=== PATIENT | male | born 1950 | race Caucasian/White ===

== ENCOUNTER 2022-02-18 10:27 | Outpatient (CLI) | payer MEDICARE, SELFPAY ==
--- NOTE | 2022-02-18 10:36 | ECG_ITS ---
Measurements Intervals [place] Rate: 56 P: 31 MN: 123 QRS: 57 QRSD: 96 T: 18 QT: 392 QTc: 381 Interpretive Statements SINUS BRADYCARDIA NONSPECIFIC T-WAVE ABNORMALITY ABNORMAL ECG NO PREVIOUS ECG AVAILABLE FOR COMPARISON Electronically Signed On 02-18-2022 16:00:25 CDT by Maury Rodríguez M.D.
[2022-02-18 11:06] LABS: Basophils Percent Auto 0.7 % (0.2-1.2); Eosinophils Absolute Auto 0.2 K/mm3 (0-0.3); Eosinophils Percent Auto 3.8 % (0-4.4); Hematocrit 42.9 % (42.0-52.0); Hemoglobin 14.5 g/dL (14.0-18.0); Immature Granulocyte Absolute 0.01 K/mm3 (0.00-0.031); Immature Granulocyte Percent A 0.2 % (0-0.5); Lymphocytes Absolute Auto 0.83 K/mm3 (0.9-3.2); Lymphocytes Percent Auto 19.9 % (18.3-44.2); Mean Corpuscular HGB Conc 33.8 g/dl (32-36); Mean Corpuscular Hemoglobin 30.4 pg (26-34); Mean Corpuscular Volume 89.9 fl (80-100); Mean Platelet Volume 9.7 fl (7.4-10.4); Monocytes Absolute Auto 0.6 K/mm3 (0.1-0.6); Monocytes Percent Auto 13.4 % (2.6-8.5); Neutrophils Absolute Auto 2.6 K/mm3 (1.3-6.7); Platelet Count Result 175 k/mm3 (150-375); Red Blood Count 4.77 M/mm3 (4.6-6.20); Red Cell Distribution Width 14.6 % (11.5-14.5); White Blood Count 4.2 K/mm3 (4.5-10.0)
[2022-02-18 11:17] LABS: Prothrombin Time 12.6 Seconds (11.1-14.7)
[2022-02-18 11:18] LABS: Partial Thromboplastin Time 32.7 SECONDS (22.3-36.8)
[2022-02-18 11:21] LABS: Anion Gap 4 mmol/L (8-16); Blood Urea Nitrogen 24 mg/dL (9-20); Calcium 9.3 mg/dL (8.4-10.2); Carbon Dioxide 31 mmol/L (22-30); Chloride 106 mmol/L (98-107); Estimated Glomerular Filt Rate 60; Glucose 73 mg/dL (65-110); Sodium 141 mmol/L (137-145)
== END 2022-02-18 10:28 | disposition home or self-care (01) ==
PROVIDERS: PCP Family Medicine Sports Medicine; Visit Provider Urology
DX: Z01.818 Encounter for other preprocedural examination (principal); R97.20 Elevated prostate specific antigen [PSA]; E78.00 Pure hypercholesterolemia, unspecified; R00.1 Bradycardia, unspecified; Z51.81 Encounter for therapeutic drug level monitoring; Z79.899 Other long term (current) drug therapy
CPT/HCPCS: 36415; 80048; 85025; 85610; 85730; 87086; 93005

== ENCOUNTER 2022-02-23 00:19 | Day surgery (SDC) | payer MEDICARE, SELFPAY ==
[2022-02-17 13:37] VITALS: BMI 25.8
--- NOTE | 2022-02-17 13:45 | PC.NURSE ---
Report to the Outpatient Waiting Room, entrance under the green pavilion located off [facility], at time 0600 on date _02/23/22 . OR Time: . - You and your visitor will be asked a series of questions to screen for COVID 19 for your protection. - A mask is required within the hospital. Preoperative COVID Testing Requirements: No COVID Test needed if: (proof is required; if not received patient will have Rapid Test prior to entry) - Patient has received COVID Vaccine at least 14 days prior to procedure date or - Patient has positive COVID test result within last 90 days of surgery date. COVID Test needed if above criteria is not met If not COVID vaccinated a COVID test must be conducted within 72 hours of surgery and patient is asked to isolate self from time of testing until procedure. You will go to the [facility] for your COVID testing. The [facility] is located at the corner of [address] [facility]. You will only be called if COVID results are positive and your surgeon may reschedule your elective surgery date. Patients may have clear liquids (water, carbonated beverages, clear teas, apple juice) until 3 hours prior to surgery with a maximum of 20 ounces. - No food from midnight until time of surgery - Infants may have breast milk until 4 hours before surgery, infant formula 6 hours prior to surgery. - Children will be allowed to drink immediately following surgery. If applicable, please bring a bottle or sippy cup to assist with drinking. Juice, water, soda, and popsicles are readily available. For infants on formula, please bring formula the day of surgery. Pacifiers are allowed. Take the following medications with a SIP of water the morning of surgery: _PREGABALIN Medications to discontinue per physician ____PT STATES ASPIRIN AND ALL VITAMINS AND SUPPLEMENTS 7 DAYS PRE OP PER DR CARVER Date to take last dose__02/15/22 Please no make-up, nail maldivian, hairspray, perfume, deodorant, or body powder the day of surgery. No jewelry (including any body piercings) or valuables the day of surgery, leave them at home. Please take a shower or bath the night before, or the morning of, surgery with an antibacterial soap. Wear comfortable, loose fitting clothing. Children are encouraged to wear pajamas. - Jewelry must be removed prior to entering the operating room. Rings and piercings that are not removed may be cut off. - The hospital will not accept responsibility for valuables. - Please leave all valuables, including medications, at home the day of surgery. If you are going home after surgery, a licensed pile driver engineer must drive you home. - NO public transportation without another adult. - We recommend that an adult stay with you for 24 hours following discharge. - We also recommend that you do not drive, make important decision, drink alcoholic beverages, or take any drugs that were not prescribed by your health care provider for at least 24 hours after your discharge time. For Pediatric surgeries, we recommend two adults accompany the child home (only one inside the building at this time). One visitor will be allowed to accompany the patient into the hospital. Patients visitor will be instructed to remain with patient at all times or leave the building. We will allow the visitor to come back to the postoperative area when patient is ready. Follow any additional instructions given to you from your surgeon. Telephone instructions given to __PATIENT and asked if any additional questions and then verbalized understanding. Patient advised to call surgeon office or pre surgery nurse liaison [phone] if any additional questions.
--- NOTE | 2022-02-22 15:28 | WPDANESEPPF ---
Anes - Initial Pre Proc Eval Procedure: Operation Date: 02/23/22 07:30 Proposed Procedures p Trans Urethral Resection Prostate - Mustapha Worley MD Date/Time: 02/22/22 15:28 Surgeon: Mustapha Worley MD Pre Op Diagnosis: abn PSA, BPH Patient Data Age: 71 Gender: M Height: 1.7 m Weight: 74.85 kg Allergies Allergy/AdvReac Type Severity Reaction Status Date / Time bacitracin AdvReac Redness of Verified 02/23/22 06:54 [From Neosporin Skin ([id number])] chlorpheniramine AdvReac Blurry Verified 02/23/22 06:54 [From Coricidin HBP Cough Vision and Cold] dextromethorphan AdvReac Blurry Verified 02/23/22 06:54 [From Coricidin HBP Cough Vision and Cold] neomycin AdvReac Redness of Verified 02/23/22 06:54 [From Neosporin Skin ([id number])] polymyxin B AdvReac Redness of Verified 02/23/22 06:54 [From Neosporin Skin ([id number])] Home Medications Medication Instructions Recorded Confirmed Type aspirin [Adult Low Dose Aspirin] 81 mg PO DAILY 02/17/22 02/23/22 History atorvastatin 10 mg PO QPM 02/17/22 02/23/22 History finasteride 5 mg PO QPM 02/17/22 02/23/22 History multivitamin [Multi-Vitamin] 1 tablet PO DAILY 02/17/22 02/23/22 History pregabalin 100 mg PO TID 02/17/22 02/23/22 History terazosin 5 mg PO QPM 02/17/22 02/23/22 History Patient hx anesthesia problems: none Family hx anesthesia problems: none Results Review: All pre-operative results and documents have been reviewed as part of the pre-operative evaluation. [facility] Past Medical History Medical History (Updated 02/22/22 @ 15:29 by Siddharth Gomez MD) BPH (benign prostatic hyperplasia) Hyperlipidemia LEIGH on CPAP Peripheral neuropathy Social History Social History Smoking status: Never smoker Living arrangements: with family Spiritual care concerns: No Anes - Eval Final PreProcedure Day of Procedure 02/22/22 15:28 Patient weight: overweight Heart: regular rate and rhythm Lungs: clear to auscultation and normal air movement Airway: Mallampati scale class II Neurological: alert and oriented Last oral intake: >/= 8 hours ASA classification: II Emergent: no Anesthetic plan: proceed Anesthesia type and monitoring: general LMA Results Review: All pre-operative results and documents have been reviewed as part of the pre-operative evaluation. Informed Consent: The patient's anesthetic plan and its attendant risks and benefits were discussed with the patient/family/POA. Questions were solicited and answers provided to the satisfaction of the patient/family/POA.
[2022-02-23] VITALS (13 sets, daily range): BP systolic 109–143; BP diastolic 56–74; PULSE 57–81; RESP 12–18; TEMP 36–36.9; O2SAT 95–100
[2022-02-23] MEDS: LACTATED RINGERS 1,000 ML 30 ML IV CONT ×2 (06:34→08:37)
--- NOTE | 2022-02-23 07:22 | WPDHPUPDATE1 ---
History and Physical Update Update Date/Time: 02/23/22 07:22 History and Physical has been reviewed, including an updated exam of the patient. There are NO changes in the patient's condition. Risks, benefits, and alternatives have been discussed and questions answered. Patient agrees to proceed with procedure. Proceed with TURP
[2022-02-23] MEDS: ceFAZolin 2 GM/D5W 50 ML 2 GM/50 ML BAG IVPB (07:25)
[2022-02-23] MEDS: LIDOCAINE HCL 2% GEL UROJET 10 ML PKG MUCOUS MEM (08:28)
--- NOTE | 2022-02-23 08:32 | P.OP_ITS ---
Procedure Note - Detailed Date of Procedure 02/23/22 Pre-op Diagnosis abn PSA, BPH Post-op Diagnosis Same Procedure Performed Transurethral resection of prostate with urethral dilation Surgeon Mustapha Worley MD Anesthesia General Description of Procedure Patient was taken to the operative suite correctly identified. Once anesthesia was obtained was placed in dorsal lithotomy position and prepped draped usual sterile fashion. He has a slight bit of a phimosis with uncircumcised scan. We were able to retract this back enough. The meatus was dilated to 28 [place]. Twenty-four Tu[place] resectoscope sheath was then inserted in the bladder. There were no tumors noted. The ureteral orifices are obscured by fairly large median lobe. We went ahead and resected the median lobe. We then resected the lateral lobes from the bladder neck to the verumontanum. Both ureteral orifices were visualized at termination of procedure. Hemostasis was achieved using electrocautery. 2% viscous lidocaine was inserted into the urethra to [address] was placed with 25 cc of saline in the balloon. Patient is taken recovery room stable condition connected to continuous bladder irrigation. Specimens were sent to pathology for review. Estimated Blood Loss 75 Drains Yes Packing No Pathology Yes Complications No immediate complications Condition Stable Disposition PACU
--- NOTE | 2022-02-23 09:50 | ADMGEN ---
This patient, Flower Mederos, was admitted to Medical Room 261-01. Patient/family oriented to hospital policies and general routines including ID bracelet, bed and alarms, visiting hours, pain management, procedures, bathroom and other care routines, personal items, smoking policy, room service/diet, and visiting hours. Information on how to activate the Rapid Response Team has been discussed. Patient/Family are encouraged to report perceived risks to care and to ask questions if they do not understand what they are told or what they should do.
[2022-02-23] MEDS: DOCUSATE SODIUM 100 MG CAPSULE PO ×2 (10:12→17:25)
[2022-02-23] MEDS: DEXTROSE 5%/LACTATED RINGERS 1,000 ML 125 ML IV CONT (10:12)
[2022-02-23] MEDS: PREGABALIN (*CRX) 50 MG CAPSULE 100 MG PO ×2 (12:42→17:25)
[2022-02-23] MEDS: ATORVASTATIN 10 MG TABLET PO (17:28)
[2022-02-23] MEDS: TERAZOSIN HCL 5 MG CAPSULE PO (17:28)
[2022-02-24 00:37] VITALS: BP 106/51; PULSE 72; RESP 18; TEMP 36.8; O2SAT 94
[2022-02-24 05:16] VITALS: BP 134/58; PULSE 72; RESP 14; TEMP 37.2; O2SAT 94
[2022-02-24 06:43] LABS: Anion Gap 5 mmol/L (8-16); Blood Urea Nitrogen 20 mg/dL (9-20); Calcium 8.3 mg/dL (8.4-10.2); Carbon Dioxide 26 mmol/L (22-30); Chloride 108 mmol/L (98-107); Estimated CRCL calculation 46 ml/min; Estimated Glomerular Filt Rate 60; Glucose 96 mg/dL (65-110); Potassium 3.6 mmol/L (3.4-5.0); Sodium 139 mmol/L (137-145)
[2022-02-24 06:48] LABS: Hematocrit 36.7 % (42.0-52.0); Hemoglobin 12.7 g/dL (14.0-18.0)
[2022-02-24] MEDS: PREGABALIN (*CRX) 50 MG CAPSULE 100 MG PO (08:18)
[2022-02-24] MEDS: CEPHALEXIN 500 MG CAPSULE PO ×2 (08:18→14:11)
[2022-02-24] MEDS: DOCUSATE SODIUM 100 MG CAPSULE PO (08:18)
[2022-02-24 10:00] VITALS: BP 122/54; PULSE 63; RESP 18; TEMP 36.6; O2SAT 94
--- NOTE | 2022-02-24 13:08 | WPDUROPN2 ---
Progress Note: A&P Assessment and Plan (1) BPH (benign prostatic hyperplasia): Code(s): N40.0 - Benign prostatic hyperplasia without lower urinary tract symptoms Status: Acute Assessment and Plan: Ok to discharge home with leg bag. Subjective Subjective Date/Time Seen: 02/24/22 13:08 POD #1 TURP with urethral dilation Patient doing very well, he is up and ambulating in the halls. He is tolerating diet and pain well. His urine is light pink off CBI with activity. Review of Systems Cardiovascular: Cardiovascular: Reports no additional cardiovascular complaints Respiratory: Respiratory: Reports no additional respiratory complaints Gastrointestinal: Gastrointestinal: Denies abdominal pain, Denies nausea and Denies vomiting Genitourinary: Genitourinary: Reports hematuria and Denies flank pain Exam Resp: Effort & Inspection: normal respiratory effort Cardio: Rate: regular rate GI: GI Palp: Yes Soft to palpation and No Tenderness to palpation present (GI) : General: Yes no CVA tenderness Urinary Catheter: Urinary Catheter: patent and draining, urine clear and urine pink Extrem: General: no edema Objective Data Vital Signs Vital Signs: Vital Signs - 24 hr 02/23/22 14:08 02/23/22 18:15 02/23/22 22:00 Temperature 97.4 F L 97.4 F L 98.5 F Pulse Rate 62 71 78 Respiratory Rate 14 14 16 Blood Pressure 123/57 L 120/66 116/56 L Pulse Oximetry 98 98 95 02/24/22 00:37 02/24/22 05:16 02/24/22 10:00 Temperature 98.3 F 98.9 F 97.9 F Pulse Rate 72 72 63 Respiratory Rate 18 14 18 Blood Pressure 106/51 L 134/58 L 122/54 L Pulse Oximetry 94 94 94 Intake/Output Intake/Output: Intake & Output 02/21/22 02/22/22 02/23/22 02/24/22 23:59 23:59 23:59 23:59 Intake Total 2611 480 Output Total 5248 700 Balance -4414 -787 Meds/Results Medications: Active Medications Generic Name Dose Route Start Last Admin Trade Name Freq PRN Reason Stop Dose Admin Hydrocodone Bitart/Acetaminophen 1 tab 02/23/22 09:34 Hydrocodone/Acetaminophen (*Crx) 5-325 Mg Tablet PO Q4H PRN Pain Rated 1-6 Atorvastatin Calcium 10 mg 02/23/22 18:00 02/23/22 17:28 Atorvastatin 10 Mg Tablet PO 10 mg QPM FAY Administration Cephalexin HCl 500 mg 02/24/22 09:00 02/24/22 08:18 Cephalexin 500 Mg Capsule PO 500 mg QID FAY Administration Docusate Sodium 100 mg 02/23/22 09:34 02/24/22 08:18 Docusate Sodium 100 Mg Capsule PO 100 mg BID FAY Administration Hyoscyamine 0.125 mg 02/23/22 09:34 Hyoscyamine Sulfate 0.125 Mg Tablet SUBLINGUAL Q6H PRN Bladder Spasm Morphine Sulfate 2 mg 02/23/22 09:34 Morphine Sulfate (*Crx) 2 Mg/Ml Inj IV PUSH Q2H PRN Pain Rated 7-10 Naloxone HCl 0.1 mg 02/23/22 09:34 Naloxone Hcl 0.4 Mg/Ml Vial IV PUSH Q2M PRN Opiate Reversal Ondansetron HCl 4 mg 02/23/22 09:34 Ondansetron Inj 4 Mg/2 Ml Vial IV PUSH Q12H PRN Nausea And Vomiting Pregabalin 100 mg 02/23/22 09:00 02/24/22 08:18 Pregabalin (*Crx) 50 Mg Capsule PO 100 mg TID [facility] Administration Terazosin HCl 5 mg 02/23/22 18:00 02/23/22 17:28 Terazosin Hcl 5 Mg Capsule PO 5 mg QPM FAY Administration Labs Labs: Laboratory Results - last 24 hr 02/24/22 02/24/22 05:59 05:59 Hgb 12.7 L Hct 36.7 L Sodium 139 Potassium 3.6 Chloride 108 H Carbon Dioxide 26 Anion Gap 5 L BUN 20 Creatinine 1.20 Estim Creat Clear Calc 46 Estimated GFR 60 Glucose 96 Calcium 8.3 L
== END 2022-02-24 14:30 | disposition home or self-care (01) ==
LOC: ANHSURGERY 05:58 → ANH2MED 09:38
PROVIDERS: PCP Family Medicine Sports Medicine; Visit Provider Urology
PROC: 0VT08ZZ Resection of Prostate, Via Natural or Artificial Opening Endoscopic (ICD-10-PCS; CPT 52601; principal; 2022-02-23 07:30)
DX: N40.1 Benign prostatic hyperplasia with lower urinary tract symptoms (principal); N13.8 Other obstructive and reflux uropathy; R97.20 Elevated prostate specific antigen [PSA]; E78.5 Hyperlipidemia, unspecified; G47.33 Obstructive sleep apnea (adult) (pediatric); G62.9 Polyneuropathy, unspecified; Z79.82 Long term (current) use of aspirin
CPT/HCPCS: 52601; 36415; 80048; 85014; 85018; 88305; A9270; J0690; J1100; J2370; J2405; J2704; J3010; J7120; J7121

== ENCOUNTER 2024-06-26 13:36 | Outpatient (CLI) | payer MEDICARE, SELFPAY ==
--- NOTE | ~2024-06-26 | PE_ITS ---
EXAMINATION: PET_PETPSMAST_PT DATE: 06/26/2024 15:38 INDICATION: Malignant neoplasm of prostate. TECHNIQUE: 5.374 mCi of Ga-68 gozetotide was administered intravenously. Low dose computed tomography (CT) images were acquired from the base of the brain to the proximal thighs for attenuation correcti on and anatomic localization. Automated exposure control was employed. Dose-length product (DLP) was 972 mGy-cm. Positron emission tomography (PET) images were acquired in the same distribution. COMPARISON: None FINDINGS: Head/neck: There are nodules in the thyroid measuring up to 13 mm, likely not clinically significant. There are no pathologically enlarged lymph nodes. There are changes of anterior fusion procedure in cervical spine. Chest: A calcified left lung nodule and calcified left hilar lymph nodes are consistent with old gran ulomatous disease. No pleural effusion. The heart size is normal. No pericardial effusion. Abdomen/pelvis/proximal thighs: The liver, gallbladder, spleen, pancreas, and adrenal glands are norm al. There is cortical thinning of the kidneys. There are 2 stones in right kidney measuring up to 6 m m. There is a 2 mm stone in left kidney. There is a left inguinal hernia containing a wall of sigmoid colon. The prostate is moderately enlarged. There is increased activity in the prostate, worst in th e left peripheral zone with maximum SUV of 15.5. There is diffuse bladder wall thickening, likely sec ondary to chronic outlet obstruction. There are no dilated loops of bowel. The appendix is normal. Th ere are no pathologically enlarged lymph nodes. There is no free intraperitoneal fluid. IMPRESSION: 1. Moderately enlarged prostate with increased activity, consistent with primary malignancy. No evide nce of metastatic disease. 2. Left inguinal hernia containing a wall of nonobstructed sigmoid colon. Reviewed, dictated and finalized at location A. IMPRESSION: 1. Moderately enlarged prostate with increased activity, consistent with primar y malignancy. No evidence of metastatic disease. 2. Left inguinal hernia containing a wall of nonobstructed sigmoid colon.
== END 2024-06-26 13:37 | disposition home or self-care (01) ==
LOC: ANHIMG 13:40
PROVIDERS: PCP Family Medicine Sports Medicine; Visit Provider Urology
DX: C61 Malignant neoplasm of prostate (principal); K40.90 Unilateral inguinal hernia, without obstruction or gangrene, not specified as recurrent
CPT/HCPCS: 78815; A9596